=== PATIENT | female | born 1955 | race African-American/Black ===

== ENCOUNTER 2017-02-23 03:12 | Emergency (ER) | payer BC, OTHER ==
[~2017-02-23] VITALS: Ht 160 cm; Wt 72.6 kg
--- NOTE | ~2017-02-23 | EKG ---
[address] [employer] [place] [address] ELECTROCARDIOGRAM REPORT Name: RAMAKRISHNA MARTINEZ Room [facility] Renato#: [id number] Admission: 02/23/17 Attend Phys: Discharge: 02/23/17 Date of : 55 Report #: [id number] THIS REPORT FOR: //name// [facility] ED Test Date: 2017-02-23 Test Time: 03:12:49 Pat Name: RAMAKRISHNA MARTINEZ Department: Room: Gender: F [employer]: HENRIQUE : 1955 Requested By: Tanner Roberts Order Number: [id number] MD: Aneudy Flores Measurements Intervals [place] Rate: 70 P: 47 ND: 181 QRS: 41 QRSD: 105 T: 40 QT: 421 QTc: 455 Interpretive Statements Sinus rhythm Borderline T wave abnormalities Compared to ECG 02/18/2017 17:27:25 Prolonged QT interval no longer present T-wave abnormality still present Electronically Signed On 02-23-2017 20:11:11 CDT by Aneudy Flores [email or web address] <ELECTRONICALLY SIGNED> By: Aneudy Flores MD 02/23/172010 1 1 Aneudy Flores MD /FOSTER
[~2017-02-23 03:12] MED LIST: LISINOPRIL; LISINOPRIL-HCT1 EACH PO; NIFEDIAC CC; NORCO 5-325 TA1 EACH PO; NORVASC5 MG PO; ZPAK
[2017-02-23 03:33] LABS: HEMATOCRIT 40.8 % (37.0-47.0); MCHC 34.2 g/dL (28.0-37.0); MCV 81.6 fL (80.0-100.0); RDW 13.9 % (10.5-14.5); WBC 8.6 thou/uL (4.0-11.0)
[2017-02-23 03:43] LABS: ANION GAP 8 mmol/L (7-16); BUN 11 mg/dL (7-18); CALCIUM 8.9 mg/dL (8.5-10.1); CHLORIDE 107 mmol/L (98-107); CO2 27 mmol/L (21-32); CREATININE 0.9 mg/dL (0.6-1.0); GLUCOSE 128 mg/dL (74-106); POTASSIUM 3.3 mmol/L (3.5-5.1); SODIUM 142 mmol/L (136-145)
[2017-02-23 03:52] LABS: TROPONIN-I < 0.04 ng/mL (<0.04-0.07)
[2017-02-23 05:35] VITALS: BP 132/80
== END 2017-02-23 05:35 | disposition home or self-care (01) ==
LOC: ER 03:12
PROVIDERS: Emergency Medicine
DX: R07.89 Other chest pain (principal); I10 Essential (primary) hypertension; Z88.0 Allergy status to penicillin; Z88.2 Allergy status to sulfonamides; Z88.5 Allergy status to narcotic agent; Z91.041 Radiographic dye allergy status